=== PATIENT | female | born 1945 | race Caucasian/White ===

== ENCOUNTER → 2020-04-19 10:03 | Outpatient (BNVA) | payer MEDICARE, OTHER, SELFPAY | PROVIDERS: PCP Internal Medicine; Visit Provider Hospitalist | DX: R06.00 Dyspnea, unspecified (principal); J38.3 Other diseases of vocal cords; J98.11 Atelectasis; G47.33 Obstructive sleep apnea (adult) (pediatric); K44.9 Diaphragmatic hernia without obstruction or gangrene; M41.9 Scoliosis, unspecified | CPT/HCPCS: 99214 ==

== ENCOUNTER → 2020-08-29 13:29 | Outpatient (BNVA) | payer MEDICARE, OTHER, SELFPAY | PROVIDERS: PCP Internal Medicine; Visit Provider Hospitalist | DX: Z13.89 Encounter for screening for other disorder (principal) | CPT/HCPCS: Q3014 ==

== ENCOUNTER 2020-09-07 15:13 | Outpatient (REF) | payer MEDICARE, OTHER, SELFPAY ==
[2020-09-07 16:36] LABS: MANUAL DIFF FLAG NO
[2020-09-07 16:42] LABS: Basophils Percent Auto 0.3 % (0-2); Eosinophils Absolute Auto 0.2 X10*3/uL (0.0-0.4); Eosinophils Percent Auto 1.9 % (0-4); Hematocrit 40.6 % (37-47); Hemoglobin 13.1 g/dl (12.0-16.0); Imm Gran Abs Auto 0.04 X10*3/uL (0.00-0.03); Imm Gran Pct Auto 0.3 % (0.0-0.4); Lymphocytes Percent Auto 23.9 % (20-40); Mean Corpuscular HGB Conc 32.3 g/dl (31.0-35.0); Mean Corpuscular Hemoglobin 32.1 pg (27.0-33.0); Mean Corpuscular Volume 99.5 fL (80-98); Mean Platelet Volume 9.3 fL (9.4-12.3); Monocytes Absolute Auto 0.9 X10*3/uL (0.1-1.2); Monocytes Percent Auto 7.6 % (2-11); Neutrophils Absolute Auto 8.2 X10*3/uL (2.0-8.3); Platelet Count 456 X10*3/uL (160-400); Red Blood Count 4.08 X10*6/uL (4.20-5.50); Red Cell Distribution Width 14.4 % (11.0-16.0); White Blood Count 12.4 X10*3/uL (4.8-10.8)
[2020-09-07 17:02] LABS: Anion Gap 12 (12-20); Blood Urea Nitrogen 18 mg/dL (9-16); Calcium 9.3 mg/dL (8.4-10.2); Carbon Dioxide 24 mmol/L (22-29); Chloride 107 mmol/L (96-108); Estimated Glomerular Filt Rate > 60; Glucose Random 93 mg/dL (60-115); Potassium 4.4 mmol/L (3.3-5.1); Sodium 139 mmol/L (135-145)
[2020-09-07 17:45] LABS: Erythrocyte Sedimentation Rate 13 MM/HR (0-20)
[2020-09-08 04:44] LABS: SARS COV2 IgG Negative (Negative)
== END 2020-09-07 15:14 | disposition home or self-care (01) ==
LOC: HO.LAB 15:13
PROVIDERS: PCP Internal Medicine; Visit Provider Hospitalist
DX: R06.03 Acute respiratory distress (principal); R06.1 Stridor; R06.00 Dyspnea, unspecified; J38.3 Other diseases of vocal cords; G47.33 Obstructive sleep apnea (adult) (pediatric); I50.30 Unspecified diastolic (congestive) heart failure; I27.20 Pulmonary hypertension, unspecified; Z79.899 Other long term (current) drug therapy; Z01.84 Encounter for antibody response examination
CPT/HCPCS: 36415; 80048; 85025; 85652; 86769; 99212

== ENCOUNTER 2020-10-02 07:56 | Outpatient (REF) | payer MEDICARE, OTHER, SELFPAY ==
--- NOTE | ~2020-10-02 | CT_ITS ---
EXAMINATION: CT SOFT TISSUE NECK WITH CONTRAST CLINICAL INFORMATION: Stridor COMPARISON: CTA of the chest November 2019 TECHNIQUE: Following the intravenous administration of 60 mL of Omnipaque 350 intravenous contrast, helical imaging was performed in the axial plane with generation of coronal and sagittal reformatted images. This CT examination was performed using dose optimization techniques as appropriate, variously including the following: *Automated exposure control *Adjustment of mA and/or kV according to patient size (this includes techniques or standardized protocols for targeted exams where dose is matched to indication/reason for exam; i.e. extremities or head) *Use of iterative reconstruction technique DLP: 272 mGy-cm FINDINGS: The naso, sam and hypopharynx and larynx are normal. The trachea is normal. No mass is seen. Visualized paranasal sinuses are clear. The mastoid air cells and middle ears are clear. The salivary glands are normal. The thyroid gland is normal. No enlarged lymph nodes are seen. The visualized proximal esophagus is normal. There is heterogeneous attenuation of the lungs questionable for hypoventilatory changes or areas of air trapping. There is right carotid calcification.. No mediastinal lymphadenopathy is seen. Visualized intracranial structures are normal. The orbits are normal. The head is tilted to the right. There is a 4 mm anterior subluxation of C3 with respect to C4 there is a 3 mm anterior subluxation of C7 with respect to T1. There is multilevel degenerative spondylosis, degenerative disc disease and facet arthritis from C3-C3-C4 to C7-T1. 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 CT/CT soft tissue neck w con IMPRESSION: No mass seen. Right carotid calcification. Heterogeneous attenuation of the lungs questionable for areas of air-trapping/hypoventilatory changes. Severe degenerative changes of the cervical spine and anterior subluxation of C3 C3 with respect to C4 and C7 with respect to T1. Degenerative changes at the temporomandibular joints.
[2020-10-02] MEDS: iohexoL 350 MG/ML 75 ML INFUS..BTL IV (09:02)
== END 2020-10-02 07:57 | disposition home or self-care (01) ==
LOC: HO.CT 07:56
PROVIDERS: Visit Provider Hospitalist
DX: R06.1 Stridor (principal)
CPT/HCPCS: 70491; Q9967

== ENCOUNTER → 2020-10-12 10:15 | Outpatient (BNVA) | payer MEDICARE, OTHER, SELFPAY | PROVIDERS: PCP Internal Medicine; Visit Provider Hospitalist | DX: K44.9 Diaphragmatic hernia without obstruction or gangrene (principal); J98.11 Atelectasis; R06.02 Shortness of breath; J38.3 Other diseases of vocal cords | CPT/HCPCS: 99212 ==

== ENCOUNTER → 2021-03-16 08:49 | Outpatient (BNVA) | payer MEDICARE, OTHER, SELFPAY | PROVIDERS: PCP Internal Medicine; Visit Provider Hospitalist | DX: J98.11 Atelectasis (principal); J38.3 Other diseases of vocal cords; R06.03 Acute respiratory distress; I27.20 Pulmonary hypertension, unspecified; K44.9 Diaphragmatic hernia without obstruction or gangrene | CPT/HCPCS: 99212 ==